=== PATIENT | male | born 1975 | race Caucasian/White ===

== ENCOUNTER 2017-11-26 02:27 | Observation (INO) | payer OTHER, SELFPAY ==
[2017-11-26 03:24] LABS: #Basophils 0.1 thou/uL (0.0-0.2); #Eosinphils 0.3 thou/uL (0.0-0.7); #Lymphocytes 3.7 thou/uL (1.20-3.40); #Monocytes 0.8 thou/uL (0.11-0.59); #Neutrophils 5.2 thou/uL (1.40-6.50); %Basophils 1.1 % (0.0-1.0); %Eosinophils 2.8 % (0.0-10.0); %Lymphocytes 36.8 % (21.0-51.0); %Neutrophils 51.4 % (42.0-75.0); Hemoglobin 17.1 g/dL (14.0-18.0); Mean Corpuscular HGB CONC 35.6 g/dL (32.0-36.0); Mean Corpuscular Hemoglobin 31.4 pg (27.0-31.0); Mean Corpuscular Volume 88.2 fL (78.0-98.0); Mean Platelet Volume 6.4 fL (7.4-10.4); Platelet Count 270 thou/uL (130-400); RBC Distribution Width 11.7 % (11.5-14.5); Red Blood Cell (RBC) Count 5.44 mill/uL (4.70-6.10)
[2017-11-26 03:31] LABS: INR-International Normal Ratio 0.9; PTT 31.5 SEC (22.9-36.1); Prothrombin Time 12.4 SEC (12.0-14.7)
[2017-11-26 03:44] LABS: ALT (SGPT) 35 U/L (8-55); AST (SGOT) 19 U/L (5-34); Albumin 4.4 g/dL (3.5-5.0); Alkaline Phosphatase 54 U/L (40-150); Anion Gap 15 mmol/L (10-20); BUN (Urea Nitrogen) 26 mg/dL (8.9-20.6); Bilirubin, Total 1.2 mg/dL (0.2-1.2); CK (CPK) 40 U/L (30-200); Calc. Creatinine Clearance 0 mL/min (70-130); Calcium 9.8 mg/dL (7.8-10.44); Carbon Dioxide 21 mmol/L (22-29); Chloride 107 mmol/L (98-107); Estimated GFR-MDRD Greater than 90; Globulin 2.9 g/dL (2.4-3.5); Glucose 108 mg/dL (70-105); Protein, Total 7.3 g/dL (6.0-8.3); Sodium 139 mmol/L (136-145)
[2017-11-26 03:49] LABS: CKMB 0.7 ng/mL (0-6.6); Troponin I Less than 0.010 ng/mL (< 0.028)
[2017-11-26] MEDS ORDERED: Nitroglycerin 2% Ointment 1 INCH/1 GM Packet ONE (05:02)
[2017-11-26 07:15] LABS: Troponin I Less than 0.010 ng/mL (< 0.028)
[2017-11-26] MEDS ORDERED: Regadenoson 0.4 MG/5 ML SYRINGE ONE (07:44)
--- NOTE | 2017-11-26 08:07 | RAD ---
SINGLE VIEW OF THE CHEST: COMPARISON: None. HISTORY: Chest pain for 2 days. FINDINGS: Single view of the chest shows a normal sized cardiomediastinal silhouette. There is no evidence of c onsolidation, mass, or pleural effusion. The bones are unremarkable. IMPRESSION: No evidence of acute cardiopulmonary disease. POS: CET
[2017-11-26] MEDS ORDERED: Ondansetron HCl/PF 4 MG/2 ML Vial IVP PRN (08:20)
[2017-11-26] MEDS ORDERED: Acetaminophen 325 MG TAB PO PRN (08:20)
[2017-11-26] MEDS ORDERED: Mag-Al 1200 mg/1200 mg/30 ML UDCUP PO PRN (08:20)
[2017-11-26] MEDS ORDERED: Nitroglycerin 0.4 MG TAB (25 Tab Bottle) PO PRN (08:20)
[2017-11-26] MEDS ORDERED: Ondansetron ODT 4 MG TAB PO PRN (08:20)
[2017-11-26] MEDS ORDERED: Senokot 8.6 MG TAB PO PRN (08:20)
[2017-11-26] MEDS ORDERED: Calcium Carbonate 500 MG ChewTAB PO PRN (08:20)
--- NOTE | 2017-11-26 08:39 | HP ---
DATE OF ADMISSION: 11/26/2017 PRIMARY CARE PHYSICIAN: None at this time. He is planning to follow [facility]. CHIEF COMPLAINT: Chest discomfort. HISTORY OF PRESENT ILLNESS: Patient is a 42-year-old male with hypertension, hyperlipidemia, and recent CVA with residual mild left-sided weakness per patient report, presented to the emergency room with chest discomfort. The chest discomfort started yesterday evening while he was resting. It was substernal associated with some nausea and diaphoresis. He denies any radiation. No recent immobilization, travel reported. No palpitations, vomiting, lightheadedness, dizziness, syncope reported. He denies any cough or wheezing. He had mild shortness of breath during the above episode that has resolved. He had some wheezing as well that has improved. In the emergency room, initial vital signs showed temperature 98.1, respirations 20, pulse 84, blood pressure 135/91 with O2 saturation 94% on room air. His EKG shows normal sinus rhythm without significant ST-T wave changes. Chest x-ray was negative for infiltrate or edema. He received aspirin by the EMS. He also had DuoNeb along with 1 inch nitropatch. He is chest pain free at this time. PAST MEDICAL HISTORY: 1. Hypertension 2. Hyperlipidemia. 3. Recent cerebrovascular accident with residual left-sided weakness and facial droop. Please note the patient does not take aspirin at this time due to financial reason. 4. Anxiety. PAST SURGICAL HISTORY: 1. Hernia surgery. 2. Sinus surgery. 3. Back surgery. 4. Spinal implant. ALLERGIES: Patient is allergic to OXYCODONE. CURRENT HOME MEDICATIONS: Prozac 40 mg daily. He does not take any other medication including aspirin. SOCIAL HISTORY: Patient currently lives in his truck. He has lot of social issues lately. Smokes half pack on daily basis.He denies current use of alcohol or drug use. FAMILY HISTORY: Negative for premature coronary artery disease. REVIEW OF SYSTEMS: The following complete review of systems was negative, unless otherwise mentioned in the HPI or below: Constitutional: Weight loss or gain, ability to conduct usual activities. Skin: Rash, itching. Eyes: Double vision, pain. ENT/Mouth: Nose bleeding, neck stiffness, pain, tenderness. Cardiovascular: Palpitations, dyspnea on exertion, orthopnea. Respiratory: Shortness of breath, wheezing, cough, hemoptysis, fever or night sweats. Gastrointestinal: Poor appetite, abdominal pain, heartburn, nausea, vomiting, constipation, or diarrhea. Genitourinary: Urgency, frequency, dysuria, nocturia. Musculoskeletal: Pain, swelling. Neurologic/Psychiatric: Anxiety, depression. Allergy/Immunologic: Skin rash, bleeding tendency. PHYSICAL EXAMINATION: VITAL SIGNS: As discussed above. GENERAL: A 42-year-old male, obese, in no apparent distress. Denies any chest pain at this time. HEENT: Head is atraumatic, normocephalic. Sclerae are anicteric. Moist mucous membrane, no oral lesion. NECK: Supple, no JVD appreciated. No carotid bruit. LUNGS: Clear to auscultation bilaterally, no wheezing, rales or rhonchi. HEART: S1, S2 present. Regular rate and rhythm. No murmur, rubs, or gallops appreciated. ABDOMEN: Soft, obese, nontender, bowel sounds present. EXTREMITIES: No edema or calf tenderness. NEUROLOGIC: The patient has a mild left-sided weakness from recent CVA. No other focal deficit noted. PSYCHIATRY: Alert, awake, oriented x3. Anxious appearing. SKIN: Warm and dry. LYMPH NODES: No palpable lymph nodes in the neck. PERIPHERAL VASCULAR: Radial pulses palpable bilaterally. MUSCULOSKELETAL: No joint swelling or tenderness. LABORATORY FINDINGS AND IMAGING: Troponins negative. CBC showed WBC 10 with hemoglobin 17.1, platelet 270. PT, INR, PTT in normal range. BUN 26, creatinine 0.9. LFTs in normal range. EKG and chest x-ray by my review as discussed above. IMPRESSION: 1. Chest discomfort suspicious for angina. 2. Hypertension. 3. Hyperlipidemia. 4. Recent cerebrovascular accident with residual left-sided weakness, not taking any antiplatelet agent on admission. 5. Obesity. 6. Anxiety, depression without any suicidal ideation. 7. Tobacco dep PLAN: The patient will be monitored on the telemetry unit. If his troponins are negative, we will schedule a Cardiolite stress test due to intermediate probability for coronary artery disease. We will start him on aspirin and statins. Lifestyle modification was emphasized. We will also consult case management for medication assistance due to financial issues. We will start him on low dose amlodipine as well. He was advised to follow up with [facility] as outpatient. Plan of care was discussed with the patient in detail. He stated understanding. NGHIAD
[2017-11-26] MEDS ORDERED: Aspirin 325 MG TAB PO SCH (09:00)
[2017-11-26] MEDS ORDERED: Amlodipine 5 MG TAB PO SCH (09:00)
[2017-11-26 10:32] LABS: Troponin I Less than 0.010 ng/mL (< 0.028)
[2017-11-26 14:44] VITALS: BMI 41.8
--- NOTE | 2017-11-26 15:09 | NM ---
MYOCARDIAL PERFUSION EVALUATION: DATE: 11/26/17 INDICATION: Chest pain, CVA, hypertension, dyslipidemia, and smoking. RADIOPHARMACEUTICAL: 28.4 mCi technetium-99m sestamibi IV with stress and 10.2 mCi technetium-99m sestamibi IV with rest. PHYSIOLOGIC DATA: The patient achieved 60% of maximal age-predicted heart rate utilizing the Lexiscan stress test tere col. Please see the stress test report for further details concerning physiologic data. FINDINGS: When comparing the rest and stress images, no reversible myocardial perfusion defect is evident. Ther e is some vertical motion artifact noted on both the stress and rest images on the raw data. There wa s normal wall motion and thickening. The estimated LVEF is 71%. IMPRESSION: No scintigraphic evidence of reversible myocardial ischemia. POS: ARIEL
[2017-11-26 16:37] VITALS: BP 135/84; TEMP 97.3
[2017-11-26] MEDS ORDERED: Atorvastatin Calcium 10 MG TAB PO SCH (21:00)
--- NOTE | 2017-11-27 12:06 | DIS ---
DATE OF ADMISSION: 11/26/2017 DATE OF DISCHARGE: 11/26/2017 DISCHARGE DISPOSITION: Home. FOLLOWUP: Follow up with [facility] as scheduled. ALLERGIES: Patient is allergic to OXYCODONE. DISCHARGE MEDICATIONS: Aspirin 81 mg daily, Prozac 40 mg daily. BRIEF HOSPITAL COURSE: The patient is a 42-year-old male who was admitted earlier today with chest d iscomfort. Please refer to the history and physical for further details. The patient was admitted to the hospital with a diagnosis of chest discomfort, rule out acute coronar y syndrome. Serial troponins remain negative. He underwent a Cardiolite stress test that was negati ve for reversible ischemia. He is chest pain free at this time. Due to recent CVA, he was advised t o take aspirin on a daily basis. Plan of care was discussed with the patient in detail. He stated u nderstanding. FINAL DIAGNOSES: 1. Chest discomfort, acute coronary syndrome ruled out. 2. Hypertension. 3. Hyperlipidemia. 4. Recent acute CVA with residual left-sided weakness, not taking any antiplatelet agent. 5. Morbid obesity with a BMI of 41.9. 6. Anxiety, depression without any suicidal ideation. 7. Tobacco dependence.
--- NOTE | 2017-11-28 11:04 | STRESS ---
Acquisition Time: 2017-11-26 13:12:07 Total Exercise Time: 00:01:00 Test Indications: CHEST PAIN Medications: Protocol: LEXISCAN Max HR: 109 BPM 60% of Pred: 179 BPM Max BP: 120/080 mmHG Max Work Load: 1.0 METS RESTING ECG: NORMAL SINUS RHYTHM AT 60 BPM WITH LEFT AXIS DEVIATION AND POOR R-WAVE PROGRESSION SYMPTOMS: DYSPNEA NORMAL BP RESPONSE ECTOPY: NONE ECG STRESS: NO SIGNIFICANT CHANGES INTERPRETATION: NEGATIVE ECG/AWAIT NUCLEAR IMAGES FOR DEFINITIVE DIAGNOSIS Confirmed by CINTIA AVITIA ([id number]) on 11/28/2017 11:04:38 AM Referred By: MD Fausto WANG Confirmed By:CINTIA AVITIA
== END 2017-11-26 17:56 | disposition home or self-care (01) ==
LOC: ERS 02:27 → ERHOLD 04:50 → 2SW 12:24
PROVIDERS: ADMIT Internal Medicine; ATTEND Internal Medicine
DX: R07.89 Other chest pain (principal); I10 Essential (primary) hypertension; E78.5 Hyperlipidemia, unspecified; E66.01 Morbid (severe) obesity due to excess calories; F41.8 Other specified anxiety disorders; F17.200 Nicotine dependence, unspecified, uncomplicated; Z86.73 Personal history of transient ischemic attack (TIA), and cerebral infarction without residual deficits; Z68.41 Body mass index [BMI] 40.0-44.9, adult; Z88.8 Allergy status to other drugs, medicaments and biological substances
CPT/HCPCS: 36415; 71045; 78452; 80053; 82553; 83880; 84484; 85025; 85610; 85730; 93005; 93017; 94640; A9500; G0378; J2785; J7620

== ENCOUNTER 2022-11-19 23:16 | Emergency (ER) | payer OTHER | END 2022-11-19 23:51 | disposition left against medical advice (07) | LOC: ERS 23:16 | DX: Z53.21 Procedure and treatment not carried out due to patient leaving prior to being seen by health care provider (principal) | CPT/HCPCS: 93005; 94760 ==

== ENCOUNTER 2023-04-20 09:29 | Outpatient (CLI) | payer OTHER | END 2023-04-20 09:30 | disposition home or self-care (01) | LOC: RAD 09:29 | PROVIDERS: ATTEND Internal Medicine Critical Care Medicine | DX: R06.00 Dyspnea, unspecified (principal) | CPT/HCPCS: 71046 ==

== ENCOUNTER 2023-11-23 13:04 | Outpatient (CLI) | payer OTHER | END 2023-11-23 13:05 | disposition home or self-care (01) | LOC: DTY/OP 13:04 | PROVIDERS: ATTEND Surgery | DX: K21.9 Gastro-esophageal reflux disease without esophagitis (principal) | CPT/HCPCS: 97802 ==

== ENCOUNTER 2023-11-30 08:10 | Outpatient (CLI) | payer OTHER ==
[2023-11-30] MEDS ORDERED: Barium Sulfate 96% 176 GM BOT (xray ONLY) ONE (08:25)
[2023-11-30] MEDS ORDERED: E-Z-HD 98% W/W 340GM BOT (x-ray ONLY) ONE (08:25)
== END 2023-11-30 08:11 | disposition home or self-care (01) ==
LOC: RAD 08:10
PROVIDERS: ATTEND Surgery
DX: K21.9 Gastro-esophageal reflux disease without esophagitis (principal)
CPT/HCPCS: 74220